=== PATIENT | female | born 1965 | race Caucasian/White ===

== ENCOUNTER 2019-02-12 11:45 | Outpatient (CLI) | payer OTHER ==
[2019-02-15] MEDS ORDERED: VIMPAT200 MG (14:53)
== END 2019-02-12 12:01 | disposition home or self-care (01) ==
LOC: SONOGRAMA 11:45
DX: N60.11 Diffuse cystic mastopathy of right breast (principal); N60.12 Diffuse cystic mastopathy of left breast; N63.11 Unspecified lump in the right breast, upper outer quadrant

== ENCOUNTER 2019-02-13 14:55 | Outpatient (CLI) | payer OTHER ==
[2019-02-15] MEDS ORDERED: VIMPAT200 MG (14:53)
== END 2019-02-13 15:00 | disposition home or self-care (01) ==
LOC: EKG 14:55
DX: I10 Essential (primary) hypertension (principal)

== ENCOUNTER → 2019-02-14 09:37 | Outpatient (CLI) | payer OTHER ==
[~2019-02-14 09:37] MED LIST: VIMPAT200 MG
== END | disposition home or self-care (01) ==
LOC: LAB 09:37
DX: D64.89 Other specified anemias (principal); I10 Essential (primary) hypertension; D68.8 Other specified coagulation defects; N39.0 Urinary tract infection, site not specified; E11.00 Type 2 diabetes mellitus with hyperosmolarity without nonketotic hyperglycemic-hyperosmolar coma (NKHHC); E04.1 Nontoxic single thyroid nodule; E78.2 Mixed hyperlipidemia

== ENCOUNTER 2019-02-16 06:48 | Day surgery (SDC) | payer OTHER | END 2019-02-16 16:30 | disposition home or self-care (01) | LOC: CIR.AMB 06:48 | DX: D24.1 Benign neoplasm of right breast (principal) ==

== ENCOUNTER 2022-01-30 09:22 | Emergency (ER) | payer OTHER ==
[~2022-01-30] VITALS: Ht 149.9 cm; Wt 41.7 kg
[2022-01-30] MEDS ORDERED: METRONIDAZOLE500 MG PO (12:43)
[2022-01-30] MEDS ORDERED: CARAFATE1 GM PO (12:46)
[2022-01-30] MEDS ORDERED: PEPCID AC10 MG PO (12:46)
== END 2022-01-30 12:54 | disposition home or self-care (01) ==
LOC: ER 09:22
DX: R20.0 Anesthesia of skin (principal); R19.7 Diarrhea, unspecified; G40.802 Other epilepsy, not intractable, without status epilepticus; Z20.822 Contact with and (suspected) exposure to COVID-19; J11.00 Influenza due to unidentified influenza virus with unspecified type of pneumonia

== ENCOUNTER 2025-08-06 07:00 | Day surgery (SDC) | payer OTHER ==
[2025-08-05 08:00] LABS: BASO % 1.4 % (0.1-1.2); EOS # 0.10 (0.04-0.54); EOS % 2.0 % (0.7-7.0); LYMPH # 1.61 (1.18-3.74); LYMPH % 32.3 % (19.3-53.1); MEAN PLATELET VOLUME 9.30 fl (9.4-12.4); MONO # 0.46 (0.24-0.82); MONO % 9.2 % (4.7-12.5); NEUT # 2.74 (1.56-6.13); NEUT % 55.1 % (34.0-71.1); RED CELL DISTRIBUTION WIDTH 11.8 % (11.6-14.4)
[2025-08-05 08:17] LABS: URINE APPEARANCE Clear; URINE BILIRRUBIN Negative (NEGATIVE); URINE BLOOD Small; URINE COLOR Yellow; URINE GLUCOSE Negative (NEGATIVE); URINE KETONE Negative (NEGATIVE); URINE LEUKOCYTE Moderate; URINE NITRATE Negative; URINE PROTEIN Negative (NEGATIVE); URINE UROBILINOGEN 0.2 E.U./dl
[2025-08-05 08:18] LABS: URINE BACTERIA 100.7 uL (0.0-1933); URINE EPITHELIAL CELLS 8.6 uL (0.0-38.8); URINE RBC 19.7 uL (0.0-20.8); URINE WBC 14.5 uL (0.0-23.2)
[2025-08-05 08:24] LABS: INR 0.98
[2025-08-05 08:32] LABS: ALT/SGPT 18.0 U/L (12-78); AST/SGOT 10.0 U/L (15-37); BILIRUBIN TOTAL 0.48 mg/dL (0.3-1.2); BUN CREA RATIO 21.0 (7.0-25.0); CREATININE SERUM 0.7 mg/dL (0.55-1.02); GFR 85.07; GLOBULINA 2.9 G/DL (2.4-3.5); GLUCOSE FASTING 86.0 mg/dL (65-100); OSMOLALITY SERUM 285.0 MOSM/KG (275-295)
[2025-08-05 08:39] LABS: URINE CAST 0.00 uL (0.0-1.40)
[2025-08-05 08:43] VITALS: BP 122/79
[~2025-08-06] VITALS: Ht 149.9 cm; Wt 44.5 kg
[~2025-08-06 07:00] MED LIST changes: +CARAFATE1 GM PO; +LAMICTAL; +METRONIDAZOLE500 MG PO; +PEPCID AC10 MG PO
[2025-08-06] MEDS ORDERED: CEFAZOLIN SODIUM 1,000 MG VIAL ONE (08:40)
[2025-08-06] MEDS ORDERED: BUPIVACAINE HCL/MPF 0.5% 30ML VIAL ONE (11:19)
[2025-08-06] MEDS ORDERED: ISOPROPYL ALCOHOL 30 ML OUNCE TOP ONE (12:30)
[2025-08-08 10:48] VITALS: BP 161/87; O2SAT 100
== END 2025-08-06 16:25 | disposition home or self-care (01) ==
LOC: CIR.AMB 07:00
PROVIDERS: ATTEND Orthopaedic Surgery Hand Surgery
DX: S52.532A Colles' fracture of left radius, initial encounter for closed fracture (principal); M24.532 Contracture, left wrist; Z88.8 Allergy status to other drugs, medicaments and biological substances
CPT/HCPCS: 25609; 25118; 25280; L8699